=== PATIENT | female | born 1990 | race Caucasian/White ===

== ENCOUNTER 2020-01-15 15:36 | Emergency (ER) | payer MEDICAID ==
[2020-01-15 18:19] VITALS: BP 145/68
== END 2020-01-15 18:19 | disposition home or self-care (01) ==
LOC: ED 15:36
DX: S63.502A Unspecified sprain of left wrist, initial encounter (principal); V49.9XXA Car occupant (driver) (passenger) injured in unspecified traffic accident, initial encounter; Y93.89 Activity, other specified; Y92.89 Other specified places as the place of occurrence of the external cause; Y99.8 Other external cause status